=== PATIENT | female | born 1950 | race Caucasian/White ===

== ENCOUNTER 2018-08-05 11:53 | Emergency (ER) | payer OTHER ==
[~2018-08-05] VITALS: Ht 165.1 cm; Wt 56.7 kg
[2018-08-05] MEDS ORDERED: cloNIDine HCL 0.1 MG TAB PO ONE (12:15)
[2018-08-05] MEDS ORDERED: LORazepam 0.5 MG TAB PO ONE (14:15)
[2018-08-05 15:23] LABS: Albumin 3.9 g/dL (3.4-5.0); BUN/Creatinine Ratio 15.9; Calcium 9.6 mg/dL (8.5-10.1); Potassium 3.8 mmol/L (3.5-5.1)
[2018-08-05 15:26] LABS: Bilirubin, Total 0.4 mg/dL (0.2-1.0); Total Protein 9.3 g/dL (6.4-8.2)
[2018-08-05 15:28] LABS: Basophils # (auto) 0 uL; Basophils % (auto) 0.6 % (0.0-2.0); Eosinophils # (auto) 0 uL; Eosinophils % (auto) 0.4 % (0.0-7.0); Hematocrit 39.9 % (36.0-46.0); Hemoglobin 13.5 g/dL (12.2-16.2); Lymphocytes # (auto) 1.2 uL; Lymphocytes % (auto) 19.9 % (10.0-50.0); Mean Corpuscular Hemoglobin 28.3 pg (28.0-32.0); Mean Corpuscular Hgb Conc. 33.9 g/dL (32.0-36.0); Mean Corpuscular Volume 83.6 fL (80.0-100.0); Monocytes # (auto) 0.4 uL; Monocytes % (auto) 6.8 % (0.0-12.0); Neutrophils # (auto) 4.5 uL; Neutrophils % (auto) 72.3 % (37.0-80.0); Nucleated Red Blood Cells % 0.1 %; Platelet Count (auto) 202 10^3/uL (140-450); Red Blood Cells 4.77 10^6/uL (4.0-5.20); Red Cell Distribution Width 16.2 % (11.8-14.3); White Blood Cell 6.2 10^3/uL (4.4-10.8)
[2018-08-05 15:32] LABS: INR 0.97 (0.9-1.15); Partial Thromboplastin Time 28.6 sec (23.64-32.05); Prothrombin Time 10.5 sec (9.06-12.60)
[2018-08-05 17:00] VITALS: BP 138/80
[2018-08-05] MEDS ORDERED: PHENYLEPHRINE HCL 0.5 % NASAL SPRAY 15ML ONE (17:00)
[2018-08-05] MEDS ORDERED: OXYMETAZOLINE HCL 0.05 % NASAL SPRAY 15ML ONE (17:00)
[2018-08-05] MEDS ORDERED: COCAINE HCL 4% TOP SOL 4ML TOP ONE (17:00)
[2018-08-05 17:14] LABS: Urine Bacteria FEW /hpf (None Seen); Urine Blood Negative /uL (Negative); Urine Specific Gravity 1.006 (1.001-1.035); Urine WBC 11 /hpf (0 - 5)
== END 2018-08-05 17:46 | disposition home or self-care (01) ==
LOC: ER 11:53
DX: R04.0 Epistaxis (principal); I10 Essential (primary) hypertension; F41.9 Anxiety disorder, unspecified; M79.641 Pain in right hand; M25.551 Pain in right hip; M25.511 Pain in right shoulder; Z87.891 Personal history of nicotine dependence; Z86.73 Personal history of transient ischemic attack (TIA), and cerebral infarction without residual deficits; Z88.0 Allergy status to penicillin
CPT/HCPCS: 30901; 36415; 71045; 80053; 81001; 85025; 85610; 85730; 93005; 94761

== ENCOUNTER 2018-08-06 10:13 | Emergency (ER) | payer OTHER ==
[~2018-08-06] VITALS: Ht 165.1 cm; Wt 58.1 kg
[2018-08-06 10:30] VITALS: BP 240/100
[2018-08-06] MEDS ORDERED: cloNIDine HCL 0.1 MG TAB ONE (10:54)
[2018-08-06] MEDS ORDERED: cloNIDine HCL 0.1 MG TAB PO ONE (11:00)
[2018-08-06 11:02] LABS: INR 0.96 (0.9-1.15); Partial Thromboplastin Time 27.4 sec (23.64-32.05); Prothrombin Time 10.4 sec (9.06-12.60)
[2018-08-06 12:00] LABS: Basophils # (auto) 0 uL; Basophils % (auto) 0.8 % (0.0-2.0); Eosinophils # (auto) 0 uL; Eosinophils % (auto) 0.3 % (0.0-7.0); Hematocrit 41.9 % (36.0-46.0); Hemoglobin 14.1 g/dL (12.2-16.2); Lymphocytes # (auto) 2.1 uL; Lymphocytes % (auto) 35.7 % (10.0-50.0); Mean Corpuscular Hemoglobin 28.4 pg (28.0-32.0); Mean Corpuscular Hgb Conc. 33.6 g/dL (32.0-36.0); Mean Corpuscular Volume 84.5 fL (80.0-100.0); Monocytes # (auto) 0.3 uL; Monocytes % (auto) 5.5 % (0.0-12.0); Neutrophils # (auto) 3.4 uL; Neutrophils % (auto) 57.7 % (37.0-80.0); Nucleated Red Blood Cells % 0.1 %; Platelet Count (auto) 244 10^3/uL (140-450); Red Blood Cells 4.96 10^6/uL (4.0-5.20); Red Cell Distribution Width 16.4 % (11.8-14.3); White Blood Cell 5.8 10^3/uL (4.4-10.8)
== END 2018-08-06 12:59 | disposition home or self-care (01) ==
LOC: ER 10:13
DX: R04.0 Epistaxis (principal); I10 Essential (primary) hypertension; Z86.73 Personal history of transient ischemic attack (TIA), and cerebral infarction without residual deficits; Z87.891 Personal history of nicotine dependence; Z88.0 Allergy status to penicillin
CPT/HCPCS: 30901; 36415; 85025; 85610; 85730; 93005

== ENCOUNTER 2018-08-07 10:51 | Emergency (ER) | payer OTHER ==
[~2018-08-07] VITALS: Ht 165.1 cm; Wt 58.1 kg
[2018-08-07 11:10] VITALS: BP 128/81
[2018-09-14] MEDS ORDERED: LISI-646 PO (22:43)
[2018-09-14] MEDS ORDERED: ATOR20TA50 PO (22:43)
[2018-09-14] MEDS ORDERED: CLOP75TA41 PO (22:43)
[2018-09-14] MEDS ORDERED: ASPI81TA27 PO (23:22)
== END 2018-08-07 12:09 | disposition home or self-care (01) ==
LOC: ER 10:54
DX: R04.0 Epistaxis (principal); I10 Essential (primary) hypertension; Z88.0 Allergy status to penicillin; Z86.73 Personal history of transient ischemic attack (TIA), and cerebral infarction without residual deficits; Z48.01 Encounter for change or removal of surgical wound dressing; Z87.891 Personal history of nicotine dependence

== ENCOUNTER 2020-10-23 10:02 | Emergency (ER) | payer OTHER ==
[~2020-10-23] VITALS: Ht 165.1 cm; Wt 70.3 kg
[~2020-10-23 10:02] MED LIST: ASPI-543 PO; ATOR20TA50 PO; CLOP75TA70 PO; LISI20TA28 PO
[2020-10-23] MEDS ORDERED: CALCIUM CHLOR(10%) 100MG/ML 10ML SYRINGE IV ONE (10:03)
[2020-10-23] MEDS ORDERED: SODIUM BICARBONATE 8.4% INJ 50ML SYRINGE IV ONE (10:03)
[2020-10-23] MEDS ORDERED: EPINEPHrine HCL 1 MG/10 ML SYRG IV ONE (10:03)
[2020-10-23] MEDS ORDERED: DEXTROSE (50%) 50ML SYRG IV ONE (10:03)
[2020-10-23] MEDS ORDERED: MAGNESIUM SULF 50% 40 MEQ/10 ML VL IV ONE (10:03)
[2020-10-23 10:55] LABS: Hematocrit 28.3 % (36.0-46.0); Hemoglobin 8.8 g/dL (12.2-16.2); Mean Corpuscular Hemoglobin 29.3 pg (28.0-32.0); Mean Corpuscular Hgb Conc. 31.1 g/dL (32.0-36.0)
[2020-10-23 10:58] LABS: Mean Corpuscular Volume 94.3 fL (80.0-100.0)
[2020-10-23 11:23] LABS: Albumin 3.1 g/dL (3.4-5.0); Calcium 9.1 mg/dL (8.5-10.1)
[2020-10-23 11:27] LABS: BUN/Creatinine Ratio 7.6; Bilirubin, Total 0.7 mg/dL (0.2-1.0); Total Protein 7.5 g/dL (6.4-8.2)
[2020-10-23 11:45] LABS: Red Cell Distribution Width 21.5 % (11.8-14.3)
[2020-10-23] MEDS ORDERED: SODIUM CHLORIDE 0.9% 1,000 ML IV ONE ×2 (11:45)
[2020-10-23] MEDS ORDERED: ASPirin 81 mg TAB PO ONE (11:45)
[2020-10-23 11:46] LABS: Basophils % (manual) 0 (0.0-2.0); Promyelocytes % 0; Reactive Lymphocytes 0
[2020-10-23] MEDS ORDERED: FUROSEMIDE 40 MG/4 ML VIAL IV ONE (12:00)
[2020-10-23] MEDS ORDERED: ENOXAPARIN SOD 30 MG/0.3 ML SYRINGE IV ONE (12:00)
[2020-10-23 12:05] LABS: Magnesium 2.8 mg/dL (1.6-2.6)
[2020-10-23 12:31] LABS: INR 1.6 (0.9-1.15); Partial Thromboplastin Time 37.2 sec (23.6-33.0)
[2020-10-23] MEDS ORDERED: levoFLOXacin 500MG 100 ML IV ONE (12:31)
[2020-10-23] MEDS ORDERED: NOREPINEPHRINE 8 MG/250ML KIT 250 ML IV ONE (13:14)
[2020-10-23] MEDS ORDERED: NOREPINEPHRINE 8 MG/250ML KIT 250 ML IV SCH (13:15)
[2020-10-23 13:16] LABS: Band Neutrophils % (manual) 1; Lymphocytes % (manual) 10 (10.0-50.0); Monocytes % (manual) 3 (0-12)
[2020-10-23 13:17] LABS: Blast Cells 65; Eosinophils % (manual) 1 (0-7); Metamyelocytes % 2; Myelocytes % 1
[2020-10-23 13:20] LABS: White Blood Cell 143.4 10^3/uL (4.4-10.8)
[2020-10-23] MEDS ORDERED: SODIUM BICARBONATE 50ML VIAL 50 ML in SOD CHL 0.45% 1,000 ML IV SCH (15:00)
[2020-10-23] MEDS ORDERED: SODIUM CHLORIDE 0.9% 2,000 ML IV ONE (15:00)
[2020-10-23 16:10] VITALS: BP 125/50
[2020-10-23 16:26] VITALS: BP 118/44
[2020-10-23 16:58] VITALS: BP 130/49
[2020-10-23] MEDS ORDERED: MIDAZOLAM DRIP 50 mg/50mL 50 ML IV ONE (17:52)
[2020-10-23] MEDS ORDERED: MIDAZOLAM HCL 5 MG/ML-1ML VIAL ONE (17:53)
[2020-10-23] MEDS ORDERED: MIDAZOLAM HCL 5 MG/ML-1ML VIAL IV ONE (18:00)
[2020-10-23] MEDS ORDERED: MIDAZOLAM DRIP 50 mg/50mL 50 ML IV SCH (18:00)
[2020-10-23] MEDS ORDERED: fentaNYL Drip 2500mCg/250mlNS 250 ML IV SCH (18:15)
[2020-10-23] MEDS ORDERED: hydroxyUREA 500 MG CAP PO SCH (18:54)
[2020-10-23] MEDS ORDERED: PHENYLEPHRINE IV 250 ML IV ONE (19:00)
[2020-10-23 19:28] LABS: Urine Amorphous Crystal FEW /hpf (None Seen); Urine Bacteria FEW /hpf (None Seen); Urine Blood 3+ /uL (Negative); Urine Mucus FEW (None Seen); Urine Specific Gravity 1.023 (1.001-1.035); Urine WBC 17 /hpf (0 - 5); Urine WBC Clumps PRESENT /hpf (None Seen)
[2020-10-23 20:35] VITALS: BP 119/13
[2020-10-23] MEDS ORDERED: MORPHINE SULFATE 4 MG/ML SYR/VIAL ONE (20:57)
[2020-10-23] MEDS ORDERED: MORPHINE SULFATE 4 MG/ML SYR/VIAL IV ONE (22:45)
[2020-10-23] MEDS ORDERED: ENOXAPARIN SOD 60 MG/0.6 ML SYRINGE SC ONE (23:00)
[2020-10-24] MEDS ORDERED: HYDROXYUREA PO SCH ×2 (02:18→20:15)
[2020-10-24] MEDS ORDERED: levoFLOXacin 250MG 50 ML IV SCH (10:00)
[2020-10-24] MEDS ORDERED: ENOXAPARIN SOD 60 MG/0.6 ML SYRINGE SC SCH (22:00)
== END 2020-10-24 10:47 ==
LOC: EDBD 10:02 → ER 10:02
DX: A41.9 Sepsis, unspecified organism (principal); R06.09 Other forms of dyspnea; R53.1 Weakness; I24.9 Acute ischemic heart disease, unspecified; I13.0 Hypertensive heart and chronic kidney disease with heart failure and stage 1 through stage 4 chronic kidney disease, or unspecified chronic kidney disease; N18.4 Chronic kidney disease, stage 4 (severe); D61.818 Other pancytopenia; E44.1 Mild protein-calorie malnutrition; E87.2 Acidosis; R79.1 Abnormal coagulation profile; D64.9 Anemia, unspecified; R00.0 Tachycardia, unspecified; J44.9 Chronic obstructive pulmonary disease, unspecified; E78.5 Hyperlipidemia, unspecified; Z68.25 Body mass index [BMI] 25.0-25.9, adult; Z85.6 Personal history of leukemia; Z86.73 Personal history of transient ischemic attack (TIA), and cerebral infarction without residual deficits; Z98.890 Other specified postprocedural states; Z20.822 Contact with and (suspected) exposure to COVID-19
CPT/HCPCS: 31500; 36415; 36556; 36600; 51702; 71045; 80053; 81001; 82805; 82962; 83690; 83735; 83880; 84443; 84484; 84550; 85007; 85027; 85379; 85610; 85730; 86850; 86900; 86901; 86920; 87040; 87070; 87077; 87086; 87088; 87186; 87205; 87426; 93005; 93306; 93970; 96361; 96365; 96366; 96367; 96368; 96375; 99291; J0171; J1650; J1940; J1956; J2250; J2270; J3475; J7042; P9016; 94002